=== PATIENT | male | born 1970 ===

== ENCOUNTER 2020-06-04 10:44 | Inpatient (IN) | payer OTHER ==
--- NOTE | 2020-06-04 11:28 | Event Note ---
ED Screening Note Date of service: 06/04/20 Time: 11:23 ED Screening Note: 49-year-old male presents to the emergency room by referral from [facility] stating that he has a new onset diabetes with blood sugar over 600. Patient reports he has been thirsty and urinating more and. Patient denies any pain. Denies any nausea no vomiting. States this is been going on for about a month. This initial assessment/diagnostic orders/clinical plan/treatment(s) is/are subject to change based on patients health status, clinical progression and re- assessment by fellow clinical providers in the ED. Further treatment and workup at subsequent clinical providers discretion. Patient/guardian urged not to elope from the ED as their condition may be serious if not clinically assessed and managed. Initial orders include:
--- NOTE | 2020-06-04 11:30 | Emergency Department Report ---
Blank Doc - Documentation Documentation: 49-year-old male that was sent by his PCP for new onset of hyperglycemia. 1- This initial assessment/diagnostic orders/clinical plan/ treatment(s) is/are subject to change based on pt's health status, clinical progression and re- assessment by fellow clinical providers in the ED. Further treatment and workup at subsequent clinical provers discretion. Patient/guardians urged not to elope from ED as their condition may be serious if not clinically assessed and managed. 2-labs 3-UA
[2020-06-04 12:03] LABS: Hematocrit 46.4 % (35.5-45.6); Hemoglobin 15.5 gm/dl (11.8-15.2); Mean Corpuscular HGB Conc 33 % (32-34); Mean Corpuscular Volume 96 fl (84-94); Red Blood Count 4.83 M/mm3 (3.65-5.03); Red Cell Distribution Width 14.2 % (13.2-15.2)
[2020-06-04 12:04] LABS: Basophils % (Auto) 0.4 % (0.0-1.8); Lymphocytes # (Auto) 0.9 K/mm3 (1.2-5.4); Lymphocytes % (Auto) 22.4 % (13.4-35.0); Monocytes # (Auto) 0.2 K/mm3 (0.0-0.8); Monocytes % (Auto) 5.4 % (0.0-7.3); Platelet Count 268 K/mm3 (140-440)
[2020-06-04 12:15] LABS: Bilirubin,Urine NEG (Negative); Blood,Urine NEG (Negative); Color,Urine Straw (Yellow); Protein,Urine <15 mg/dL mg/dL (Negative); Urobilinogen,Urine < 2.0 mg/dL (<2.0); WBC,Urine < 1.0 /HPF (0.0-6.0)
[2020-06-04 12:30] LABS: Alanine Aminotransferase 42 units/L (7-56); Albumin 4.2 g/dL (3.9-5); BUN/Creatinine Ratio 14; Blood Urea Nitrogen 14 mg/dL (9-20); Calcium 10.1 mg/dL (8.4-10.2); Hemolysis Index 3
[2020-06-04] MEDS ORDERED: INSULIN REGULAR, HUMAN 100 UNITS/1 ML IV ONE (12:42)
[2020-06-04] MEDS ORDERED: SODIUM CHLORIDE 0.9% 1000 ML 1,000 ML IV ONE ×2 (12:42→14:59)
--- NOTE | 2020-06-04 12:48 | Emergency Department Report ---
ED General Adult HPI - General Chief complaint: Hyperglycemia Stated complaint: [place] DIABETES/BG OVER 600 Time Seen by Provider: 06/04/20 11:23 Source: patient Mode of arrival: Ambulatory Limitations: Language Barrier - History of Present Illness Initial comments: Patient is 49 years old male with no significant past medical history. Patient sent from his primary care physician for evaluation of hyperglycemia. Patient stated that his blood sugar at his doctor office was more than 600. Patient denied any acute symptoms. He reported that he has been having increased thirsty and urination. Patient denied any fever or chills. No cough, shortness of breath or chest pain. -: Gradual Severity scale (0 -10): 0 - Related Data Allergies Allergy/AdvReac Type Severity Reaction Status Date / Time No Known Allergies Allergy Unverified 06/04/20 11:26 ED Review of Systems ROS: Stated complaint: [place] DIABETES/BG OVER 600 Other details as noted in HPI Comment: All other systems reviewed and negative Constitutional: denies: chills, fever Respiratory: denies: cough, orthopnea, shortness of breath, SOB with exertion, SOB at rest Cardiovascular: denies: chest pain, palpitations Endocrine: increased thirst, increased urine Gastrointestinal: denies: abdominal pain, nausea, vomiting, diarrhea, constipation, hematemesis, melena Musculoskeletal: denies: back pain Neurological: denies: headache, weakness, numbness, paresthesias, confusion, abnormal gait ED Physical Exam - General Limitations: Language Barrier General appearance: alert, in no apparent distress - Head Head exam: Present: atraumatic, normocephalic, normal inspection - Eye Eye exam: Present: normal appearance, PERRL - ENT ENT exam: Present: normal exam, normal orophraynx, mucous membranes moist - Neck Neck exam: Present: normal inspection, full ROM. Absent: tenderness, meningismus - Respiratory Respiratory exam: Present: normal lung sounds bilaterally - Cardiovascular Cardiovascular Exam: Present: regular rate, normal rhythm, normal heart sounds - GI/Abdominal GI/Abdominal exam: Present: soft, normal bowel sounds. Absent: distended, tenderness, guarding, rebound, rigid, organomegaly, mass, bruit, pulsatile mass, hernia - Extremities Exam Extremities exam: Present: normal inspection, full ROM, normal capillary refill. Absent: tenderness, pedal edema, joint swelling, calf tenderness - Back Exam Back exam: Present: normal inspection, full ROM. Absent: CVA tenderness (R), CVA tenderness (L) - Neurological Exam Neurological exam: Present: alert, oriented X3, CN II-XII intact, normal gait, reflexes normal. Absent: motor sensory deficit - Psychiatric Psychiatric exam: Present: normal mood - Skin Skin exam: Present: warm, intact, normal color ED Course Vital Signs 06/04/20 06/04/20 06/04/20 11:23 11:29 12:49 Temperature 98.6 F 98.3 F Pulse Rate 86 69 Respiratory 16 13 Rate Blood Pressure 111/67 136/81 [111/67] O2 Sat by Pulse 93 96 Oximetry ED Medical Decision Making - Lab Data Result diagrams: 06/04/20 11:28 06/04/20 11:28 - EKG Data -: EKG Interpreted by Me EKG shows normal: sinus rhythm Rate: normal - Medical Decision Making Patient is 49 years old male with no significant past medical history. Patient sent from his primary care physician for evaluation of hyperglycemia. Patient s tated that his blood sugar at his doctor office was more than 600. Patient denied any acute symptoms. He reported that he has been having increased thirsty and urination. Patient denied any fever or chills. No cough, shortness of breath or chest pain. Labs reviewed and showed blood sugar of 704. Anion gap of 26. Patient started on normal saline patient given insulin 5 units IV. Rest of his labs are unremarkable. I discussed the patient with Dr. Babb, he agreed to admit the patient to medical service for further management. Critical care attestation.: If time is entered above; I have spent that time in minutes in the direct care of this critically ill patient, excluding procedure time. ED Disposition Clinical Impression: Acute hyperglycemia, New onset type 2 diabetes mellitus Disposition: OP ADMIT IP TO THIS HOSP Is pt being admited?: Yes Condition: Stable Instructions: Diabetes Mellitus Type 2 in Adults (ED) Referrals: PRIMARY CARE, [Primary Care Provider] - 3-5 Days
--- NOTE | 2020-06-04 21:37 | History and Physical Report ---
History of Present Illness Date of examination: 06/04/20 Date of admission: 06/04/20 14:58 Chief complaint: High blood glucose levels Sent by PCP for evaluation History of present illness: 49-year-old Welsh-speaking male with no significant past medical history sent by primary care physician for high blood glucose levels of 505 100. Patient is not a known diabetic. His blood sugar was more than 600 primary care physician's office. Patient has been having increased thirst and urination. Denies any fever or chills. No cough or shortness of breath. Feels weak. No fever or exposure to coronavirus. No nausea or vomiting. Patient is not on any medications. Past History Past Medical History: diabetes (New onset) Past Surgical History: No surgical history Social history: no significant social history, lives with family, full code Family history: diabetes Medications and Allergies Allergies Allergy/AdvReac Type Severity Reaction Status Date / Time No Known Allergies Allergy Verified 06/04/20 21:42 Review of Systems All systems: negative Constitutional: weight loss, fatigue Eyes: bilateral: blurred vision Ears, nose, mouth and throat: deferred Cardiovascular: no chest pain, no orthopnea, no palpitations, no rapid/irregular heart beat Gastrointestinal: no abdominal pain, no nausea, no vomiting, no diarrhea, no co nstipation Genitourinary Male: urinary frequency, no dysuria, no hematuria Rectal: no pain Musculoskeletal: no neck stiffness, no neck pain, no shooting arm pain Integumentary: no rash, no pruritis, no redness, no sores, no wounds Neurological: no head injury, no transient paralysis, no paralysis, no weakness, no parathesias, no numbness, no tingling Psychiatric: no anxiety, no memory loss, no change in sleep habits, no sleep disturbances, no insomnia, no hypersomnia, no change in appetite, no change in libido, no suicidal ideation, no disorientation, no hallucinations Endocrine: polyphagia, excessive thirst, polydipsia, polyuria, no cold intolerance, no heat intolerance Hematologic/Lymphatic: no easy bruising, no easy bleeding Allergic/Immunologic: no urticaria, no allergic rhinitis, no wheezing Exam - Constitutional Vitals: Temp Pulse Resp BP Pulse Ox 98.2 F 58 L 12 123/67 97 06/04/20 19:52 06/04/20 19:52 06/04/20 19:52 06/04/20 19:52 06/04/20 19:52 General appearance: Present: no acute distress, well-nourished - EENT Eyes: Present: PERRL ENT: hearing intact, clear oral mucosa, other (Dry mucous membranes) - Neck Neck: Present: supple, normal ROM - Respiratory Respiratory effort: normal Respiratory: bilateral: CTA - Cardiovascular Heart Sounds: Present: S1 & S2. Absent: rub, click - Extremities Extremities: pulses symmetrical, No edema Peripheral Pulses: within normal limits - Abdominal General gastrointestinal: Present: soft, non-tender, non-distended, normal bowel sounds Male genitourinary: Present: normal - Integumentary Integumentary: Present: clear, warm, dry - Musculoskeletal Musculoskeletal: gait normal, strength equal bilaterally - Psychiatric Psychiatric: appropriate mood/affect, intact judgment & insight - Neurologic Neurologic: CNII-XII intact, moves all extremities Results - Labs CBC & Chem 7: 06/04/20 11:28 06/05/20 04:32 Labs: Laboratory Last Values WBC 4.0 K/mm3 (4.5-11.0) L 06/04/20 11:28 RBC 4.83 M/mm3 (3.65-5.03) 06/04/20 11:28 Hgb 15.5 gm/dl (11.8-15.2) H 06/04/20 11:28 Hct 46.4 % (35.5-45.6) H 06/04/20 11:28 MCV 96 fl (84-94) H 06/04/20 11:28 MCH 32 pg (28-32) 06/04/20 11:28 MCHC 33 % (32-34) 06/04/20 11:28 RDW 14.2 % (13.2-15.2) 06/04/20 11:28 Plt Count 268 K/mm3 (140-440) 06/04/20 11:28 Lymph % (Auto) 22.4 % (13.4-35.0) 06/04/20 11:28 Izard % (Auto) 5.4 % (0.0-7.3) 06/04/20 11:28 Eos % (Auto) 0.0 % (0.0-4.3) 06/04/20 11:28 Baso % (Auto) 0.4 % (0.0-1.8) 06/04/20 11:28 Lymph # (Auto) 0.9 K/mm3 (1.2-5.4) L 06/04/20 11:28 Izard # (Auto) 0.2 K/mm3 (0.0-0.8) 06/04/20 11:28 Eos # (Auto) 0.0 K/mm3 (0.0-0.4) 06/04/20 11:28 Baso # (Auto) 0.0 K/mm3 (0.0-0.1) 06/04/20 11:28 Seg Neutrophils % 71.8 % (40.0-70.0) H 06/04/20 11:28 Seg Neutrophils # 2.9 K/mm3 (1.8-7.7) 06/04/20 11:28 VBG pH 7.308 (7.320-7.420) L 06/04/20 11:28 Sodium 138 mmol/L (137-145) 06/04/20 11:28 Potassium 5.4 mmol/L (3.6-5.0) H 06/04/20 11:28 Chloride 90.1 mmol/L (98-107) L 06/04/20 11:28 Carbon Dioxide 27 mmol/L (22-30) 06/04/20 11:28 Anion Gap 26 mmol/L 06/04/20 11:28 BUN 14 mg/dL (9-20) 06/04/20 11:28 Creatinine 1.0 mg/dL (0.8-1.3) 06/04/20 11:28 Estimated GFR > 60 ml/min 06/04/20 11:28 BUN/Creatinine Ratio 14 % 06/04/20 11:28 Glucose 704 mg/dL (75-100) H* 06/04/20 11:28 POC Glucose 347 mg/dL (70-105) H 06/04/20 21:02 Calcium 10.1 mg/dL (8.4-10.2) 06/04/20 11:28 Phosphorus 5.30 mg/dL (2.5-4.5) H 06/04/20 11:28 Magnesium 2.40 mg/dL (1.7-2.3) H 06/04/20 11:28 Total Bilirubin 0.40 mg/dL (0.1-1.2) 06/04/20 11:28 AST 23 units/L (5-40) 06/04/20 11:28 ALT 42 units/L (7-56) 06/04/20 11:28 Alkaline Phosphatase 160 units/L (35-129) H 06/04/20 11:28 Total Protein 6.7 g/dL (6.3-8.2) 06/04/20 11:28 Albumin 4.2 g/dL (3.9-5) 06/04/20 11:28 Albumin/Globulin Ratio 1.7 % 06/04/20 11:28 Urine Color Straw (Yellow) 06/04/20 11:52 Urine Turbidity Clear (Clear) 06/04/20 11:52 Urine pH 6.0 (5.0-7.0) 06/04/20 11:52 Ur Specific [place] 1.025 (1.003-1.030) 06/04/20 11:52 Urine Protein <15 mg/dl mg/dL (Negative) 06/04/20 11:52 Urine Glucose (UA) >=500 mg/dL (Negative) 06/04/20 11:52 Urine Ketones 20 mg/dL (Negative) 06/04/20 11:52 Urine Blood Neg (Negative) 06/04/20 11:52 Urine Nitrite Neg (Negative) 06/04/20 11:52 Urine Bilirubin Neg (Negative) 06/04/20 11:52 Urine Urobilinogen < 2.0 mg/dL (<2.0) 06/04/20 11:52 Ur Leukocyte Esterase Neg (Negative) 06/04/20 11:52 Urine WBC (Auto) < 1.0 /HPF (0.0-6.0) 06/04/20 11:52 Urine RBC (Auto) 1.0 /HPF (0.0-6.0) 06/04/20 11:52 Short CBC 06/04/20 Range/Units 11:28 WBC 4.0 L (4.5-11.0) K/mm3 Hgb 15.5 H (11.8-15.2) gm/dl Hct 46.4 H (35.5-45.6) % Plt Count 268 (140-440) K/mm3 BMP 06/04/20 11:28 Sodium 138 Potassium 5.4 H Chloride 90.1 L Carbon Dioxide 27 BUN 14 Creatinine 1.0 Glucose 704 H* Calcium 10.1 Liver Function 06/04/20 Range/Units 11:28 Total Bilirubin 0.40 (0.1-1.2) mg/dL AST 23 (5-40) units/L ALT 42 (7-56) units/L Alkaline Phosphatase 160 H (35-129) units/L Albumin 4.2 (3.9-5) g/dL Urine 06/04/20 Range/Units 11:52 Urine Color Straw (Yellow) Urine pH 6.0 (5.0-7.0) Ur Specific [place] 1.025 (1.003-1.030) Urine Protein <15 mg/dl (Negative) mg/dL Urine Glucose (UA) >=500 (Negative) mg/dL Assessment and Plan Advance Directives: Yes (full code) VTE prophylaxis?: Chemical Plan of care discussed with patient/family: Yes - Patient Problems (1) Hyperosmolar non-ketotic state due to type 2 diabetes mellitus Current Visit: Yes Status: Acute Plan to address problem: Patient's blood sugar was brought down in the emergency room and hence patient was not started on IV insulin drip Blood glucose levels to be controlled by frequent Accu-Cheks and high-dose insulin sliding scale coverage Also patient initiated on Novolin 70/30 20 units twice a day and Metformin 500 twice daily (2) Acute hyperglycemia Current Visit: Yes Status: Acute Plan to address problem: Blood glucose levels to be controlled by frequent Accu-Cheks and high-dose insulin regimen Patient also started on Novolin 70/30 20 units twice a day Diabetic education and diet education Was sugars are reasonably well controlled patient will discharge on insulin 70/30 twice a day along with Metformin. (3) New onset type 2 diabetes mellitus Current Visit: Yes Status: Acute Plan to address problem: Patient to be taught about diabetes and how to check his sugars and administration of insulin. Patient will be discharged and NovoLog Mix 70/30 20 to 25 units twice a day (4) Malnutrition Current Visit: Yes Status: Chronic Qualifiers: Protein-calorie malnutrition severity: mild Plan to address problem: Patient counseled about proper dietary intake (5) DVT prophylaxis Current Visit: Yes Status: Acute Plan to address problem: Heparin 5000 every 12 and GI prophylaxis
[2020-06-04] MEDS ORDERED: HYDROmorphone 1 MG/1 ML INJ IV PRN (21:39)
[2020-06-04] MEDS ORDERED: oxyCODONE /ACETAMINOPHEN 5-325MG TAB PO PRN (21:39)
[2020-06-04] MEDS ORDERED: METOCLOPRAMIDE 10 MG/2 ML INJ IV PRN (21:39)
[2020-06-04] MEDS ORDERED: MAGNESIUM HYDROXIDE (MOM) ORAL LIQD UDC PO PRN (21:39)
[2020-06-04] MEDS ORDERED: ALUM-MAG HYDROXIDE-SIMETHICONE 200-200-20MG/5ML ORAL LIQD 30 ML PO PRN (21:39)
[2020-06-04] MEDS ORDERED: ONDANSETRON 4 MG/2 ML INJ IV PRN (21:39)
[2020-06-04] MEDS ORDERED: ACETAMINOPHEN 325 MG TAB PO PRN (21:39)
[2020-06-04] MEDS: FAMOTIDINE 20 MG/2 ML INJ IV SCH (22:30)
[2020-06-04] MEDS: INSULIN NPH/REGULAR 70/30 INJ SUB-Q SCH (22:30)
[2020-06-04] MEDS: SODIUM CHLORIDE 0.9% 1000 ML 1,000 ML IV SCH (22:31)
[2020-06-04] MEDS: INSULIN LISPRO 100 UNIT/ML SUB-Q SCH (22:31)
[2020-06-05] MEDS: INSULIN LISPRO 100 UNIT/ML SUB-Q SCH ×8 (01:04→21:10)
[2020-06-05 05:20] LABS: Alanine Aminotransferase 30 units/L (7-56); Albumin 3.7 g/dL (3.9-5); BUN/Creatinine Ratio 16; Blood Urea Nitrogen 11 mg/dL (9-20); Calcium 9.1 mg/dL (8.4-10.2); Hemolysis Index 5
[2020-06-05] MEDS: INSULIN NPH/REGULAR 70/30 INJ SUB-Q SCH ×3 (08:00→21:08)
[2020-06-05] MEDS: FAMOTIDINE 20 MG/2 ML INJ IV SCH (09:30)
[2020-06-05] MEDS: FAMOTIDINE 20 MG TAB PO SCH ×2 (14:02→21:10)
[2020-06-05] MEDS: SODIUM CHLORIDE 0.9% 1000 ML 1,000 ML IV SCH ×2 (14:04→21:14)
--- NOTE | 2020-06-05 18:08 | Progress Note ---
Assessment and Plan - Patient Problems (1) Hyperosmolar non-ketotic state due to type 2 diabetes mellitus Current Visit: Yes Status: Acute Plan to address problem: Patient's blood sugar was brought down in the emergency room and hence patient was not started on IV insulin drip Blood glucose levels to be controlled by frequent Accu-Cheks and high-dose insulin sliding scale coverage Also patient initiated on Novolin 70/30 20 units twice a day and Metformin 500 twice daily (2) Acute hyperglycemia Current Visit: Yes Status: Acute Plan to address problem: Blood glucose levels to be controlled by frequent Accu-Cheks and high-dose insulin regimen Patient also started on Novolin 70/30 20 units twice a day Diabetic education and diet education Was sugars are reasonably well controlled patient will discharge on insulin 70/30 twice a day along with Metformin. (3) New onset type 2 diabetes mellitus Current Visit: Yes Status: Acute Plan to address problem: Patient to be taught about diabetes and how to check his sugars and administration of insulin. Patient will be discharged and NovoLog Mix 70/30 20 to 25 units twice a day (4) Malnutrition Current Visit: Yes Status: Chronic Qualifiers: Protein-calorie malnutrition severity: mild Plan to address problem: Patient counseled about proper dietary intake (5) DVT prophylaxis Current Visit: Yes Status: Acute Plan to address problem: Heparin 5000 every 12 and GI prophylaxis Subjective Date of service: 06/05/20 Principal diagnosis: Severely uncontrolled diabetes Interval history: 49-year-old Jordanian-speaking male with no significant past medical history sent by primary care physician for high blood glucose levels of 505 100. Patient is not a known diabetic. His blood sugar was more than 600 primary care physician's office. Patient has been having increased thirst and urination. De nies any fever or chills. No cough or shortness of breath. Feels weak. No fever or exposure to coronavirus. No nausea or vomiting. Patient is not on any medications. Day #2 06/05/2020 Feels better blood sugar still in 300s Educated about diabetes Objective - Constitutional Vitals: Vital Signs - 12hr 06/05/20 08:00 Pulse Rate 63 General appearance: Present: no acute distress, well-nourished - EENT Eyes: PERRL, EOM intact ENT: hearing intact, clear oral mucosa Ears: bilateral: normal - Neck Neck: supple, normal ROM - Respiratory Respiratory effort: normal Respiratory: bilateral: CTA - Breasts Breasts: normal - Cardiovascular Heart rate: 78 Rhythm: regular Heart Sounds: Present: S1 & S2. Absent: gallop, rub Extremities: pulses intact, No edema, normal color, Full ROM - Gastrointestinal General gastrointestinal: Present: soft, non-tender, non-distended, normal bowel sounds - Genitourinary Male genitourinary: normal - Integumentary Integumentary: clear, warm, dry - Musculoskeletal Musculoskeletal: 1, strength equal bilaterally - Neurologic Neurologic: moves all extremities - Psychiatric Psychiatric: memory intact, appropriate mood/affect, intact judgment & insight - Labs CBC & Chem 7: 06/04/20 11:28 06/06/20 05:04 Labs: Abnormal lab results 06/04/20 06/05/20 06/05/20 Range/Units 21:02 00:58 03:57 Chloride (98-107) mmol/L Creatinine (0.8-1.3) mg/dL Glucose (75-100) mg/dL POC Glucose 347 H 343 H 343 H (70-105) mg/dL Hemoglobin A1c (4-6) % Total Protein (6.3-8.2) g/dL Albumin (3.9-5) g/dL 06/05/20 06/05/20 06/05/20 Range/Units 04:32 04:32 06:21 Chloride 107.2 H (98-107) mmol/L Creatinine 0.7 L (0.8-1.3) mg/dL Glucose 383 H (75-100) mg/dL POC Glucose 180 H (70-105) mg/dL Hemoglobin A1c 18.9 H (4-6) % Total Protein 5.6 L (6.3-8.2) g/dL Albumin 3.7 L (3.9-5) g/dL 06/05/20 06/05/20 06/05/20 Range/Units 11:08 14:14 15:26 Chloride (98-107) mmol/L Creatinine (0.8-1.3) mg/dL Glucose (75-100) mg/dL POC Glucose 269 H 414 H 377 H (70-105) mg/dL Hemoglobin A1c (4-6) % Total Protein (6.3-8.2) g/dL Albumin (3.9-5) g/dL
[2020-06-05] MEDS ORDERED: INSULIN LISPRO 100 UNIT/ML SUB-Q ONE (19:11)
[2020-06-06] MEDS: INSULIN LISPRO 100 UNIT/ML SUB-Q SCH ×6 (01:33→17:23)
[2020-06-06] MEDS ORDERED: DEXTROSE 50% IN WATER (25GM) 50 ML SYRINGE IV PRN ×2 (04:00→16:00)
[2020-06-06 05:40] LABS: Blood Urea Nitrogen 7 mg/dL (9-20); Calcium 8.7 mg/dL (8.4-10.2); Hemolysis Index 6
[2020-06-06 05:44] LABS: BUN/Creatinine Ratio 12
[2020-06-06] MEDS: SODIUM CHLORIDE 0.9% 1000 ML 1,000 ML IV SCH ×2 (06:27→16:39)
[2020-06-06] MEDS: INSULIN NPH/REGULAR 70/30 INJ SUB-Q SCH ×2 (08:55→16:38)
[2020-06-06] MEDS: FAMOTIDINE 20 MG TAB PO SCH (09:23)
[2020-06-06 16:30] VITALS: BP 110/65
--- NOTE | 2020-06-06 18:03 | Discharge Summary ---
Providers - Providers Date of Admission: 06/04/20 14:58 Date of discharge: 06/06/20 Attending physician: SIMÓN BROUSSARD 06/04/20 21:41 Consult to Dietitian/Nutrition [CONS] Routine Physician Instructions: Reason For Exam: Reason for Consult: Diet education Primary care physician: [facility] Hospitalization Condition: Stable Hospital course: Assessment and Plan - Patient Problems (1) Hyperosmolar non-ketotic state due to type 2 diabetes mellitus Current Visit: Yes Status: Acute Plan to address problem: Patient's blood sugar was brought down in the emergency room and hence patient was not started on IV insulin drip Blood glucose levels to be controlled by frequent Accu-Cheks and high-dose insulin sliding scale coverage Also patient initiated on Novolin 70/30 20 units twice a day and Metformin 500 twice daily (2) Acute hyperglycemia Current Visit: Yes Status: Acute Plan to address problem: Blood glucose levels to be controlled by frequent Accu-Cheks and high-dose insulin regimen Patient also started on Novolin 70/30 20 units twice a day Diabetic education and diet education Was sugars are reasonably well controlled patient will discharge on insulin 70/30 twice a day along with Metformin. (3) New onset type 2 diabetes mellitus Current Visit: Yes Status: Acute Plan to address problem: Patient to be taught about diabetes and how to check his sugars and administration of insulin. Patient will be discharged and NovoLog Mix 70/30 20 to 25 units twice a day (4) Malnutrition Current Visit: Yes Status: Chronic Qualifiers: Protein-calorie malnutrition severity: mild Plan to address problem: Patient counseled about proper dietary intake (5) DVT prophylaxis Current Visit: Yes Status: Acute Plan to address problem: Heparin 5000 every 12 and GI prophylaxis Subjective Date of service: 06/05/20 Principal diagnosis: Severely uncontrolled diabetes Interval history: 49-year-old Slovenian-speaking male with no significant past medical history sent by primary care physician for high blood glucose levels of 505 100. Patient is not a known diabetic. His blood sugar was more than 600 primary care physician's office. Patient has been having increased thirst and urination. Denies any fever or chills. No cough or shortness of breath. Feels weak. No fever or exposure to coronavirus. No nausea or vomiting. Patient is not on any medications. Day #2 06/05/2020 Feels better blood sugar still in 300s Educated about diabetes Day #3 06/06/2020 Blood sugars are better controlled Had two hypoglycemic episodes Disposition: DC-01 TO HOME OR SELFCARE Time spent for discharge: 35 minutes - Discharge Diagnoses (1) Hyperosmolar non-ketotic state due to type 2 diabetes mellitus Status: Acute (2) Acute hyperglycemia Status: Acute (3) New onset type 2 diabetes mellitus Status: Acute (4) Malnutrition Status: Chronic Qualifiers: Protein-calorie malnutrition severity: mild (5) DVT prophylaxis Status: Acute Core Measure Documentation - Palliative Care Palliative Care/ Comfort Measures: Not Applicable - Core Measures Any of the following diagnoses?: none Exam - Constitutional Vitals: Temp Pulse Resp BP Pulse Ox 97.9 F 60 12 110/65 98 06/06/20 15:07 06/06/20 15:07 06/06/20 15:07 06/06/20 15:07 06/06/20 15:07 General appearance: Present: no acute distress, well-nourished - EENT Eyes: Present: PERRL ENT: hearing intact, clear oral mucosa - Neck Neck: Present: supple, normal ROM - Respiratory Respiratory effort: normal Respiratory: bilateral: CTA - Cardiovascular Heart rate: 78 Rhythm: regular Heart Sounds: Present: S1 & S2. Absent: rub, click - Extremities Extremities: pulses symmetrical, No edema Peripheral Pulses: within normal limits - Abdominal General gastrointestinal: Present: soft, non-tender, non-distended, normal bowel sounds Male genitourinary: Present: normal - Integumentary Integumentary: Present: clear, warm, dry - Musculoskeletal Musculoskeletal: gait normal, strength equal bilaterally - Psychiatric Psychiatric: appropriate mood/affect, intact judgment & insight - Neurologic Neurologic: CNII-XII intact, moves all extremities Plan Activity: no restrictions Diet: diabetic Follow up with: PRIMARY CARE, [Primary Care Provider] - 3-5 Days
== END 2020-06-06 19:30 | disposition home or self-care (01) | DRG 638 ==
LOC: ED 10:44 → 4A 14:58
PROVIDERS: ADMIT Internal Medicine; ATTEND Internal Medicine
DX: E11.00 Type 2 diabetes mellitus with hyperosmolarity without nonketotic hyperglycemic-hyperosmolar coma (NKHHC) (principal); E44.1 Mild protein-calorie malnutrition; Z83.3 Family history of diabetes mellitus; Z79.899 Other long term (current) drug therapy; Z68.26 Body mass index [BMI] 26.0-26.9, adult
CPT/HCPCS: 36415; 80048; 80053; 81001; 82805; 82962; 83036; 83735; 84100; 85025; 96361; 96372; 96374; 96375; G0378; J1815; J7030